=== PATIENT | male | born 1980 ===

== ENCOUNTER 2019-04-05 00:08 | Emergency (ER) | payer BC ==
--- NOTE | 2019-04-05 00:35 | ED ---
Lower Extremity - HPI Summary HPI Summary: 38 year old male presents with right ankle injury. he states she tripped over the dog and twisted his right ankle. He states he inverted it. Pain is over the medial aspect of his ankle. No previous fracture to the area. no other injury. Has no medical illnesses. He used tylenol for pain. - History of Current Complaint Chief Complaint: EDExtremityLower Stated Complaint: POSS BROKEN ANKLE PER PT Time Seen by Provider: 04/05/19 00:23 Pain Intensity: 8 - Allergies/Home Medications Allergies/Adverse Reactions: Allergies Allergy/AdvReac Type Severity Reaction Status Date / Time No Known Allergies Allergy Verified 04/05/19 00:10 Home Medications: Home Medications Escitalopram * [Lexapro *] 20 mg PO DAILY 04/05/19 [History Confirmed 04/05/19] PMH/Surg Hx/FS Hx/Imm Hx Endocrine/Hematology History: Denies: Hx Anticoagulant Therapy Respiratory History: Denies: Hx Asthma Infectious Disease History: No Infectious Disease History: Denies: Traveled Outside the [place] in Last 30 Days - Family History Known Family History: Positive: Non-Contributory - Social History Alcohol Use: Occasionally Substance Use Type: Reports: None Review of Systems Negative: Fever Negative: Chest Pain Negative: Shortness Of Breath Positive: Myalgia - right ankle pain All Other Systems Reviewed And Are Negative: Yes Physical Exam Triage Information Reviewed: Yes Vital Signs On Initial Exam: Initial Vitals Temp Pulse Resp BP Pulse Ox 98.1 F 88 16 129/87 95 04/05/19 00:09 04/05/19 00:09 04/05/19 00:09 04/05/19 00:09 04/05/19 00:09 Vital Signs Reviewed: Yes Appearance: Positive: Well-Appearing Skin: Positive: Warm, Dry Head/Face: Positive: Normal Head/Face Inspection Eyes: Positive: Normal, Conjunctiva Clear ENT: Positive: Pharynx normal Respiratory/Lung Sounds: Positive: Clear to Auscultation, Breath Sounds Present Cardiovascular: Positive: Normal, RRR Musculoskeletal: Positive: Limited @ - right ankle, Other - tenderness medial aspect of right ankle and foot, good pulses, sensation grossly intact Neurological: Positive: Normal Psychiatric: Positive: Normal Procedures - Sedation Patient Received Moderate/Deep Sedation with Procedure: No Diagnostics - Vital Signs Vital Signs Temp Pulse Resp BP Pulse Ox 04/05/19 00:09 98.1 F 88 16 129/87 95 - Laboratory Lab Statement: Any lab studies that have been ordered have been reviewed, and results considered in the medical decision making process. - Radiology foot, ankle Radiology Interpretation Completed By: ED Physician Summary of Radiographic Findings: no fracture Lower Extremity Course/Dx - Course Course Of Treatment: 38 year old male presents with right ankle injury. he states she tripped over the dog and twisted his right ankle. He states he inverted it. Pain is over the medial aspect of his ankle. No previous fracture to the area. no other injury. Has no medical illnesses. He used tylenol for pain. On exam has tenderness over medial aspect right ankle. Neurovascular intact. X-ray shows no fracture. gave cam boot. patient understand and agrees with plan. - Diagnoses Differential Diagnosis/HQI/PQRI: Positive: Fracture (Closed), Sprain, Strain Provider Diagnoses: Right ankle injury Discharge ED - Sign-Out/Discharge Documenting (check all that apply): Patient Departure - Discharge Plan Condition: Good Disposition: HOME Patient Education Materials: Ankle Sprain (ED) Referrals: Royal Crockett MD [Medical Doctor] - Additional Instructions: Stay off ankle as much as possible Ice, elevate Ibuprofen or tyenlol every 6 hours for pain Follow up with ortho if no improvement Return to ED if develop or any new or worsening symptoms - Billing Disposition and Condition Condition: GOOD Disposition: Home
[2019-04-05 01:34] VITALS: BP 0/0
== END 2019-04-05 01:33 | disposition home or self-care (01) ==
LOC: ED 00:08
DX: S99.911A Unspecified injury of right ankle, initial encounter (principal); W01.0XXA Fall on same level from slipping, tripping and stumbling without subsequent striking against object, initial encounter; Y92.9 Unspecified place or not applicable; Z79.899 Other long term (current) drug therapy
CPT/HCPCS: 99282